=== PATIENT | female | born 1940 | race Asian ===

== ENCOUNTER → 2020-11-08 | Outpatient (CLI) | payer OTHER ==
[~2020-11-08] MED LIST: NORCO 7.5-3251 EACH PO
== END ==
LOC: M.ULTRA 10:21
PROVIDERS: ATTEND Family Medicine
DX: R74.8 Abnormal levels of other serum enzymes (principal)

== ENCOUNTER → 2020-12-25 | Outpatient (CLI) | payer OTHER | LOC: M.CT 14:57 | PROVIDERS: ATTEND Family Medicine | DX: M89.9 Disorder of bone, unspecified (principal); J90 Pleural effusion, not elsewhere classified; J98.11 Atelectasis; R79.81 Abnormal blood-gas level; R06.00 Dyspnea, unspecified ==

== ENCOUNTER → 2020-12-30 | Outpatient (CLI) | payer OTHER ==
[2020-12-30 12:20] LABS: ABSOLUTE BASOPHILS 0.1 thou/uL (0.0-0.2); ABSOLUTE LYMPHOCYTES 0.8 thou/uL (0.8-5.3); ABSOLUTE MONOCYTES 0.8 thou/uL (0.0-1.2); ABSOLUTE NEUTROPHILS 6.9 thou/uL (1.6-8.1); BASOPHILS 0.9 %; EOSINOPHILS 0.1 %; HEMATOCRIT 36.9 % (37.0-47.0); HEMOGLOBIN 12.3 gm/dL (12.0-15.0); LYMPHOCYTES 9.2 %; MCH 29.1 pg (26.0-34.0); MCHC 33.3 g/dL (28.0-37.0); MCV 87.4 fL (80.0-100.0); MONOCYTES 9.4 %; MPV 7.4 fl. (7.2-11.1); NUCLEATED RBCS 0 /100WBC; PLATELET COUNT* 385 thou/uL (150-400); POLYS 80.4 %; RBC 4.22 mil/uL (4.20-5.00); RDW-CV 16.3 % (10.5-14.5); WBC 8.6 thou/uL (4.0-11.0)
[2020-12-30 12:27] LABS: CALCIUM 9.3 mg/dL (8.5-10.1); CREATININE 0.8 mg/dL (0.6-1.3); POTASSIUM 4.1 mmol/L (3.5-5.1)
[2020-12-30 12:32] LABS: APTT 27.3 Seconds (25.0-31.3); PROTIME 10.7 Seconds (9.20-11.50)
== END | disposition home or self-care (01) ==
LOC: M.LAB 11:56 → M.ULTRA 13:00
PROVIDERS: ATTEND Family Medicine
DX: J90 Pleural effusion, not elsewhere classified (principal); Z91.040 Latex allergy status; Z88.8 Allergy status to other drugs, medicaments and biological substances

== ENCOUNTER → 2021-01-02 | Outpatient (CLI) | payer OTHER ==
[2021-01-02] VITALS (12 sets, daily range): BP systolic 127–173; BP diastolic 51–75
[~2021-01-02] VITALS: Ht 162.6 cm; Wt 53.1 kg
--- NOTE | 2021-01-22 09:08 | PATH ---
[address] [address] PATHOLOGY RPT PROCEDURE Name: DANDRE JACQUES [id number] Admission: 01/02/21 Date of : 42 Discharge: Report #: [id number] Path Case #: [id number] [facility] Accession Number: [id number] . 01 Material submitted: . lung - RIGHT LUNG BIOPSY. Modifiers: right . 01 Clinical history: . 80-year-old female currently with a large right upper lobe and middle lobe mass, with extension into the right hilum and extensive mediastinal adenopathy, pleural effusion, and extensive lytic bone lesions. 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 . 02 Diagnosis: Lung "right mass", needle biopsy: - POORLY DIFFERENTIATED ADENOCARCINOMA. - Please see comment. . Dr. Gleason is notified of the preliminary results by Dr. Jacob Stokes on 01/03/2021 at approximately 12:00. She is also notified of the final results by Dr. Acosta on 01/08/2021 at approximately 1515. (MLK:mecca; 01/08/2021) S 01/08/2021 1830 Local . 02 Comment: Needle biopsy of the right lung mass consists of a poorly differentiated adenocarcinoma. The tumor cells have a high nuclear to cytoplasmic ratio, occasional nucleolus formation, and a scant amount of eosinophilic cytoplasm. The neoplastic cells are arranged in sheets, subtle trabecular structures, and rare crude glandular structures. There is also a subtle neuroendocrine flare both morphologically and architecturally. . By immunohistochemical techniques, the tumor [place] as an adenocarcinoma, and demonstrates very weak reactivity with one of the neuroendocrine markers (synaptophysin). The lung marker, TTF-1 is negative, as are the breast markers GOPI-3 and ER. The E-cadherin reactivity speaks against lobular carcinoma of the breast. 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 Please correlate clinically. . The case is seen in co-review by Dr. Cipriano Sanchez, who concurs with the above diagnosis on 01/08/2021). (MLK:mecca ;01/08/2021) . 02 Addendum: [place] [address] PATHOLOGY RPT PROCEDURE Name: DANDRE JACQUES Room: [facility] JULIANNE Manzo#: [id number] Admission: 01/02/21 Date of : 42 Discharge: Report #: [id number] Path Case #: [id number] Special studies report received from [facility] [place], [address] [place] [address], [address], [place], [address], on case [id number], labeled with their number [id number]*, dated 01/17/2021. . Breast/Prognostic Marker Analysis . Specimen Site: Right Lung, Mass, Biopsy, Metastatic Breast Cancer Specimen ID #: [id number] . ER (Estrogen Receptor) Negative Percent: 0.11% Analysis: Image Staining Intensity: Not Applicable Internal Control: Not Present Comments: No internal controls are present, but external controls are appropriately positive. If needed, testing another specimen that contains internal controls may be warranted for confirmation of ER status. . MD (Progesterone Receptor) Negative Percent: 0.15% Analysis: Image Staining Intensity: Not Applicable Internal Control: Not Present Comments: No internal controls are present, but external controls are appropriately positive. If needed, testing another specimen that contains internal controls may be warranted for confirmation of MD status. . HER2 Negative Score: 1+ Analysis: Image . Ki-67 Borderline Proliferation Percent: 12.26% Analysis: Image . Time to Fixation (Cold Ischemic Time): Immediate Duration of Fixation: Not Provided Type of Fixative: 10% Neutral Buffered Formalin . . at [facility]. [place] [address] PATHOLOGY RPT PROCEDURE Name: DADNRE JACQUES Room: [facility] JULIANNE Manzo#: [id number] Admission: 01/02/21 Date of : 42 Discharge: Report #: [id number] Path Case #: [id number] Surgical Pathologist . Methodology: The HER2 Receptor protein expression is analyzed using the [place] HER2 rabbit monoclonal antibody (clone [id number]). This assay is used for diagnostic determination of the HER2 protein over-expression in paraffin embedded, formalin fixed breast cancer tissue on the [employer] (Closed) Benchmark. The specimen is processed using a secondary antibody-HRP conjugate detection system. The membrane staining of the tumor is determined either by manual score or image analysis. This antibody is intended for in vitro diagnostic use. The score is reported as 0, 1+, 2+, or 3+. This test is used for clinical purposes. . A rabbit monoclonal antibody (clone SP1) that recognized the Estrogen Receptor is used to perform immunohistochemistry on routinely fixed (formalin) paraffin embedded tissue on the [employer] (Closed) Benchmark. The specimen is processed using a secondary antibody-HRP conjugate detection system. The percentage of stained tumor nuclei is determined either manually or by image analysis. This test is intended for in vitro diagnostic use. This test is used for clinical purposes. . A rabbit monoclonal antibody (clone 1E2) that recognized the Progesterone Receptor is used to perform immunohistochemistry on routinely fixed (formalin) paraffin embedded tissue on the [employer] (Closed) Benchmark. The specimen is processed using a secondary antibody-HRP conjugate detection system. The percentage of stained tumor nuclei is determined either manually or by image analysis. This test is intended for in vitro diagnostic use. This test is used for clinical purposes. . A rabbit monoclonal antibody (clone 30-9) that recognized Ki67 is used to perform immunohistochemistry on routinely fixed (formalin) paraffin embedded tissue on the [employer] (Closed) Benchmark. The specimen is processed using a secondary antibody-HRP conjugate detection system. The percentage of stained tumor nuclei is determined either manually or by image analysis. This test is intended for in vitro diagnostic use. This test is used for clinical purposes. . Intended Use: This antibody is intended for in vitro diagnostic (IVD) use. HER2 (4B5) is a rabbit monoclonal antibody intended for the semi-quantitative detection of HER2 antigen in sections of formalin-fixed, paraffin embedded neoplastic tissue. . This antibody is intended for in vitro diagnostic (IVD) use. Estrogen Receptor (ER) (SP1) is a rabbit monoclonal antibody (IgG) that is intended for the qualitative detection of estrogen receptor (ER) antigen in sections of formalin-fixed, paraffin-embedded tissue. ER is a rabbit monoclonal antibody that recognizes human estrogen receptor [place] [address] PATHOLOGY RPT PROCEDURE Name: DANDRE JACQUES [facility] [id number] Admission: 01/02/21 Date of : 42 Discharge: Report #: [id number] Path Case #: [id number] This antibody is intended for in vitro diagnostic (IVD) use. Progesterone Receptor (MD) (1E2) is a rabbit monoclonal antibody (IgG) that is intended for the qualitative detection of progesterone receptor (MD) antigen in sections of formalin fixed, paraffin embedded tissue. MD is a rabbit monoclonal antibody that recognizes the A and B forms of the human progesterone receptor. . This antibody is intended for in vitro diagnostic (IVD) use. Ki-67 (30-9) is a rabbit monoclonal antibody (IgG) directed against C-terminal portion of Ki-67 antigen. Staining for Ki-67 can be used to aid in assessing the proliferative activity of normal and neoplastic tissue. Ki-67 is a nuclear protein expressed in proliferating cells. During the cell cycle, the Ki-67 antigen is present in the G1, S, G2 and M phase but is absent in the G0 (quiescent phase). . Disclaimer: This Test was performed by [facility]. at [address], [facility]. . [facility] [employer] is a business unit of [facility] a wholly-owned subsidiary of [employer]. . This assay has not been validated on decalcified tissues. Results should be interpreted with caution if this specimen was decalcified given the likelihood of false negativity on decalcified specimens. . Any image(s) that accompany this report is/are a employee relations representative image(s) only and should not be used to render a diagnosis. . This interpretation is contingent on the specimen and the clinical information received. . For any special tests/stains performed, known positive cells or tissues are tested with each marker and examined to ensure positivity. Positive and negative internal controls, if present, react appropriately. . This analysis is an adjunct to the evaluation of the referring physician and does not represent a final diagnosis. . The immunohistochemistry tests performed at [facility] were validated on tissue fixed in 10% neutral buffered formalin. The performance characteristics of the tests performed on tissue processed in other fixatives is not known. . HER2 testing at [facility] is performed in compliance with the 2018 updated ASCO/CAP Clinical Practice Guideline Focused Update. If the result is EQUIVOCAL (2+), it must be confirmed by an alternative assay [place] [address] PATHOLOGY RPT PROCEDURE Name: DANDRE JACQUES Room: [facility] JULIANNE Manzo#: [id number] Admission: 01/02/21 Date of : 42 Discharge: Report #: [id number] Path Case #: [id number] . REFERENCE: Monica Christopher, Aria CHAVEZ, et al: Human epidermal growth factor receptor 2 testing in breast cancer: ASCO/CAP clinical practice guideline focused update. Arch Pathol Lab Med. 2018;142:3578-6039. . HER2 and ER/MD ASCO/CAP guidelines require fixation in neutral buffered formalin for a minimum of 6 and a maximum of 72 hours. Fixation times less than 6 hours may not adequately preserve cell proteins. Fixation times longer than 72 hours may cause excess cross-linking of proteins reducing the antigen available for staining. Either scenario can cause reduced staining; hence false negative results are possible and should be considered for these situations if the HER2 IHC score is less than 3+ or ER or MD is negative (no staining or <1% positive). It is recommended that specimens fixed longer than 72 hours with HER2 IHC scores less than 3+ be confirmed by HER2 FISH. The time from biopsy/excision to fixation in formalin (cold ischemic time) must be less than 1 hour. Time to fixation (cold ischemic time) greater than 1 hour should be interpreted with caution. HER2 testing, mainly HER2 by FISH, is particularly vulnerable since excessive cold ischemic time results in preferential loss of HER2 probe signals that may lead to false negative results. Use of unstained slides cut more than 6 weeks before analysis is not recommended. . ER/PgR testing at [employer] is performed in compliance with the ASCO/CAP Clinical Practice Guidelines. If the result for ER is 1-10% it is reported as Low Positive, < 1% is Negative and > 10% is Positive. PgR is reported as Negative if < 1% and Positive if > or equal to 1%. . REFERENCE: Aria CHAVEZ, Monica GOMES, Aramis Page,et al. Estrogen and progesterone receptor testing in breast cancer. ASCO/CAP guideline update. Arch Pathol Lab Med. 2020;144:545-563. . . SCORE STAINING PATTERN IN TUMOR CELLS INTERPRETATION RESULTS 0 No staining observed or incomplete, faint membrane staining in less than or equal to 10% of tumor cells. Negative 1+ Incomplete, faint membrane staining in greater than 10% of tumor cells. Negative 2+ Weak to moderate complete membrane staining observed in greater than 10% of tumor cells. Equivocal* *Must be confirmed by alternative assay (IHC/FISH/Dual NEFTALI) 3+ Intense, complete membrane staining in greater than 10% [place] [address] PATHOLOGY RPT PROCEDURE Name: DANDRE JACQUES Room: [facility]#: [id number] Admission: 01/02/21 Date of : 42 Discharge: Report #: [id number] Path Case #: [id number] cells. Positive . A complete copy of the report is on file. . Professional and Technical services performed by [employer]. at [address] [place] [address]. . (JAIRON:alden 01/20/2021) YANJ/01/21/2021 Addendum Electronically Signed by Jacob Stokes MD, Pathologist . 02 Electronically signed: . Efren Acosta MD, Pathologist NPI- [id number] . 01 Gross description: . Received in formalin labeled "Dandre Jacques and right lung". Received are 4 lung core biopsies ranging from 0.5-1.2 cm in length and 0.1 cm in diameter. The specimen is entirely submitted in cassette A1.([facility]; 01/02/2021) [facility] 01/02/2021 2156 Local . 02 Microscopic: . Immunohistochemical stain results (properly controlled) . Block A1: CK 7 - Tumor cells positive. E-cadherin - Tumor cells positive (membranous pattern). Synaptophysin - Focal weak reactivity. Chromogranin - Negative. ER - Negative. GOPI-3 - Negative. TTF-1 - Negative. CK20 - Negative. CDX2 - Negative. . (MLK:mecca; 01/08/2021) . 02 Pathologist provided ICD-10: C34.91 . 02 CPT . [id number], [id number], [id number] Performed at: 01 [facility] [address] [place] [id number] MD Dereck Hayes MD Phone: [phone] Performed at: 02 [place] [address] PATHOLOGY RPT PROCEDURE Name: DANDRE JACQUES Room: [facility]#: [id number] Admission: 01/02/21 Date of : 42 Discharge: Report #: [id number] Path Case #: [id number] [address] [id number] MD Cipriano Sanchez MD Phone: [phone]
== END | disposition home or self-care (01) ==
LOC: M.CT 12:32
PROVIDERS: ATTEND Internal Medicine Hematology & Oncology
DX: C34.91 Malignant neoplasm of unspecified part of right bronchus or lung (principal); R91.8 Other nonspecific abnormal finding of lung field; J90 Pleural effusion, not elsewhere classified; Z98.890 Other specified postprocedural states; Z85.3 Personal history of malignant neoplasm of breast; Z85.41 Personal history of malignant neoplasm of cervix uteri

== ENCOUNTER → 2021-01-16 | Outpatient (CLI) | payer OTHER ==
[~2021-01-16] VITALS: Ht 162.6 cm; Wt 54.4 kg
[2021-01-16 09:01] VITALS: BP 142/79
[2021-01-16 11:16] VITALS: BP 153/64
[2021-01-16 11:30] VITALS: BP 168/57
[2021-01-16 11:45] VITALS: BP 160/75
[2021-01-16 12:03] VITALS: BP 155/60
== END | disposition home or self-care (01) ==
LOC: M.INT 01-14 11:30
PROVIDERS: ATTEND Internal Medicine Hematology & Oncology
DX: Z45.2 Encounter for adjustment and management of vascular access device (principal); C34.91 Malignant neoplasm of unspecified part of right bronchus or lung; Z98.890 Other specified postprocedural states; Z85.3 Personal history of malignant neoplasm of breast; Z85.41 Personal history of malignant neoplasm of cervix uteri; Z79.899 Other long term (current) drug therapy; Z20.822 Contact with and (suspected) exposure to COVID-19

== ENCOUNTER → 2021-01-24 | Outpatient (CLI) | payer OTHER | LOC: M.ULTRA 15:00 | PROVIDERS: ATTEND Nurse Practitioner Family | DX: M79.89 Other specified soft tissue disorders (principal) ==

== ENCOUNTER → 2021-02-17 | Outpatient (CLI) | payer OTHER ==
[2021-02-17 14:04] LABS: ABSOLUTE MONOCYTES 0.2 thou/uL (0.0-1.2); ABSOLUTE NEUTROPHILS 3.4 thou/uL (1.6-8.1); BASOPHILS 0.8 %; EOSINOPHILS 0.4 %; HEMATOCRIT 37.8 % (37.0-47.0); HEMOGLOBIN 12.3 gm/dL (12.0-15.0); LYMPHOCYTES 21.3 %; MCH 29.4 pg (26.0-34.0); MCHC 32.5 g/dL (28.0-37.0); MCV 90.5 fL (80.0-100.0); MONOCYTES 3.8 %; MPV 8.1 fl. (7.2-11.1); NUCLEATED RBCS 0 /100WBC; PLATELET COUNT* 272 thou/uL (150-400); POLYS 73.7 %; RBC 4.18 mil/uL (4.20-5.00); RDW-CV 17.2 % (10.5-14.5); WBC 4.6 thou/uL (4.0-11.0)
[2021-02-17 14:11] LABS: APTT 27.1 Seconds (25.0-31.3); INR 0.9; PROTIME 9.9 Seconds (9.20-11.50)
== END | disposition home or self-care (01) ==
LOC: M.LAB 12:00 → M.ULTRA 13:00
PROVIDERS: ATTEND Internal Medicine Hematology & Oncology
DX: J90 Pleural effusion, not elsewhere classified (principal); R06.02 Shortness of breath; Z91.040 Latex allergy status

== ENCOUNTER → 2021-03-05 | Outpatient (CLI) | payer OTHER | END | disposition home or self-care (01) | LOC: M.LAB 11:56 → M.ULTRA 13:00 | PROVIDERS: ATTEND Internal Medicine Hematology & Oncology | DX: J90 Pleural effusion, not elsewhere classified (principal); Z91.040 Latex allergy status; Z85.3 Personal history of malignant neoplasm of breast; Z85.41 Personal history of malignant neoplasm of cervix uteri ==

== ENCOUNTER → 2021-03-28 | Outpatient (CLI) | payer OTHER | END | disposition home or self-care (01) | LOC: M.LAB 11:57 → M.ULTRA 13:00 | PROVIDERS: ATTEND Internal Medicine Hematology & Oncology | DX: J90 Pleural effusion, not elsewhere classified (principal); C34.91 Malignant neoplasm of unspecified part of right bronchus or lung; Z98.890 Other specified postprocedural states; Z79.899 Other long term (current) drug therapy; Z91.040 Latex allergy status; Z79.891 Long term (current) use of opiate analgesic ==